=== PATIENT | female | born 1965 | race American Indian/Alaskan Native ===

== ENCOUNTER 2017-07-28 12:54 | Emergency (ER) | payer MEDICAID ==
--- NOTE | 2017-07-28 13:19 | C.PDOC ---
History Of Present Illness Patient is a 51 y/o female who presents to the ED by reference of the fire department for carbon monoxide poisoning. Patient lives at home with just her and installed a new stove 3 days ago; with the windows closed overnight , the CO meter read 105-107 ppm the next day. Patient admits to CHING and nausea, but denies vision changes. Patient is a tabacco smoker and admits to smoking 1 pack/day. refused ED visit. Time Seen by Provider: 07/28/17 13:12 Chief Complaint (Nursing): Shortness Of Breath History Per: Patient History/Exam Limitations: no limitations Onset/Duration Of Symptoms: Hrs Current Symptoms Are (Timing): Still Present Recent travel outside of the [place]: No Additional History Per: Patient Past Medical History Reviewed: Historical Data, Nursing Documentation, Vital Signs Vital Signs: Last Vital Signs Temp 98 F 07/28/17 14:57 Pulse 44 L 07/28/17 14:57 Resp 12 07/28/17 14:57 BP 155/83 H 07/28/17 14:57 Pulse Ox 98 07/28/17 14:59 - Medical History PMH: Bronchitis, COPD, Diabetes, HTN, Schizophrenia Other Surgeries: impacted fecal removal 2014. - [facility] Procedures IMPACTED FECES REMOVAL (05/28/15) Family History: States: Unknown Family Hx - Social History Hx Tobacco Use: Yes (1 pack per day. ) Hx Alcohol Use: No Hx Substance Use: Yes (stopped 2008) - Immunization History Hx Tetanus Toxoid Vaccination: No Hx Influenza Vaccination: No Hx Pneumococcal Vaccination: No Review Of Systems Constitutional: Negative for: Fever, Chills Cardiovascular: Negative for: Chest Pain Respiratory: Negative for: Shortness of Breath Gastrointestinal: Positive for: Nausea. Negative for: Vomiting, Diarrhea Neurological: Positive for: Headache Physical Exam - Physical Exam Appears: Well Skin: Normal Color, Warm, Dry Head: Atraumatic, Normacephalic Eye(s): bilateral: Abnormal Pupil (miosis. ), Other (dark red retinal veins) Oral Mucosa: Moist Chest: Symmetrical Cardiovascular: Rhythm Regular, Other (bradycardic. ) Respiratory: Normal Breath Sounds, No Rales, No Rhonchi, No Wheezing Gastrointestinal/Abdominal: Soft, No Tenderness Neurological/Psych: Oriented x3, Normal Speech, Normal Cognition Gait: Steady ED Course And Treatment - Laboratory Results Lab Interpretation: Normal (VBG nl, CO by finger pulse ROJAS 1.5 percent, confirmed on local staff.) ECG: Interpreted By Me, Viewed By Me ECG Rhythm: Sinus Rhythm ECG Interpretation: Normal Rate From EC O2 Sat by Pulse Oximetry: 98 (Room air) Pulse Ox Interpretation: Normal - Radiology CXR: Interpreted by Me CXR Interpretation: Yes: No Acute Disease, Other (hyperinflated) Reevaluation Time: 14:56 Reassessment Condition: Improved (remains baseline) Medical Decision Making Medical Decision Making: Plan: Blood gas, blood work, UA, O2 therapy, and EKG ordered. Though IV access achieved, pt asked for removal and deferred blood testing with informed consent. normal eval (without blood tests) and LOW susp of CO poisoning and normal VBG/ CO Ox potential threat @ home has been mitigated by Fire Dept. No other risk persons home. Disposition Doctor Will See Patient In The: Office Counseled Patient/Family Regarding: Studies Performed, Diagnosis - Disposition Referrals: [facility] [Outside] [facility] [Outside] Israel Shaffer MD [Staff Provider] - Disposition: HOME/ ROUTINE Disposition Time: 14:59 Condition: GOOD Additional Instructions: LOW suspicion of Carbon Monoxide Poisoning: your CO level was 1.5 (very low) otherwise normal evaluation Follow Fire Dept guidelines to have your new stove evaluated for safe operation. Instructions: Carbon Monoxide Poisoning (ED) Forms: [facility] (Occitan) - Clinical Impression Clinical Impression: Carbon monoxide exposure - Scribe Statement The provider has reviewed the documentation as recorded by the Scribe Zenaida Sanders All medical record entries made by the Scribe were at my direction and personally dictated by me. I have reviewed the chart and agree that the record accurately reflects my personal performance of the history, physical exam, medical decision making, and the department course for this patient. I have also personally directed, reviewed, and agree with the discharge instructions and disposition.
[2017-07-28 14:11] LABS: DRAW SITE RB
--- NOTE | 2017-07-28 14:41 | RAD ---
PROCEDURE: CHEST RADIOGRAPH, 1 VIEW HISTORY: carbon monoxide poisoning COMPARISON: Comparison chest 11/16/2015. FINDINGS: LUNGS: Suspect minor bibasilar atelectasis PLEURA: No pneumothorax or pleural fluid seen. CARDIOVASCULAR: Normal. OSSEOUS STRUCTURES: No significant abnormalities. VISUALIZED UPPER ABDOMEN: Normal. OTHER FINDINGS: None. IMPRESSION: Suspect minor bibasilar atelectasis.
[2017-07-28 14:58] VITALS: BP 155/83; PULSE 44; RESP 12; TEMP 98
[2017-07-28 14:59] VITALS: O2SAT 98
--- NOTE | 2017-07-29 15:56 | CARD ---
APPROVED REPORT EKG Measurement Heart [id number] <Conclusion> Marked sinus bradycardia Nonspecific T wave abnormality Abnormal ECG
== END 2017-07-28 15:12 | disposition home or self-care (01) ==
LOC: C.ER 12:54
DX: Z77.098 Contact with and (suspected) exposure to other hazardous, chiefly nonmedicinal, chemicals (principal)

== ENCOUNTER 2018-08-20 22:39 | Emergency (ER) | payer MEDICAID ==
[2018-08-20 22:44] VITALS: BP 130/87; PULSE 66; RESP 19; TEMP 98.5; O2SAT 96
--- NOTE | 2018-08-20 23:19 | C.PDOC ---
History Of Present Illness Patient complains of left upper back pain and headache after accidental slip and fall in grocery store earlier today. She states she fell backwards and hit her head. She states she went home and rested but the pain started few hours later. She denies LOC, dizziness, vision changes, confusion. - HPI Time Seen by Provider: 08/20/18 22:46 Chief Complaint (Nursing): Trauma History Per: Patient History/Exam Limitations: no limitations Onset/Duration Of Symptoms: Hrs Injury Occurred (Timing): Just Before Arrival Location Of Injury: Left: Back (upper), Posterior: Head Recent travel outside of the [facility]: No Additional History Per: Patient - Fall Fall:Prior To Injury: Slipped Past Medical History Reviewed: Historical Data, Nursing Documentation, Vital Signs Vital Signs: Last Vital Signs Temp 98.5 F 08/20/18 22:40 Pulse 66 08/20/18 22:40 Resp 19 08/20/18 22:40 BP 130/87 08/20/18 22:40 Pulse Ox 96 08/20/18 22:40 - Medical History PMH: Bronchitis, COPD, Diabetes, HTN, Schizophrenia Surgical History: No Surg Hx - [facility] Procedures IMPACTED FECES REMOVAL (05/28/15) Family History: States: Unknown Family Hx - Social History Hx Tobacco Use: Yes (1 pack per day. ) Hx Alcohol Use: No Hx Substance Use: Yes - Immunization History Hx Tetanus Toxoid Vaccination: No Hx Influenza Vaccination: Yes Hx Pneumococcal Vaccination: No Review Of Systems Constitutional: Negative for: Fever, Chills Eyes: Negative for: Vision Change Cardiovascular: Negative for: Chest Pain Respiratory: Negative for: Shortness of Breath Gastrointestinal: Negative for: Nausea, Vomiting Musculoskeletal: Positive for: Back Pain Neurological: Positive for: Headache. Negative for: Weakness, Numbness, Dizziness Physical Exam - Physical Exam Appears: Non-toxic, No Acute Distress Skin: Normal Color, Warm, Dry Head: Atraumatic, Normacephalic, Other (no hematoma, patient with haydee and weave) Eye(s): bilateral: Normal Inspection, PERRL, EOMI Ear(s): Bilateral: Normal Neck: Normal ROM, No Midline Cervical Tenderness, Supple Chest: Symmetrical Cardiovascular: Rhythm Regular Respiratory: Normal Breath Sounds, No Rales, No Rhonchi, No Wheezing Gastrointestinal/Abdominal: Soft, No Tenderness, No Guarding, No Rebound Back: No Vertebral Tenderness (LS spine), No Decreased ROM, No Muscle Spasm, Other (left upper back and scapular area with tenderness on palpation and mild swelling. No ecchymosis) Extremity: Normal ROM, No Tenderness, No Swelling Neurological/Psych: Oriented x3, Normal Speech, Normal Cognition, Normal Motor, Normal Sensation Gait: Steady ED Course And Treatment O2 Sat by Pulse Oximetry: 96 (ON RA) Pulse Ox Interpretation: Normal - CT Scan/US CT head Other Rad Studies (CT/US): Read By Radiologist, Radiology Report Reviewed CT/US Interpretation: NONCONTRAST CT BRAIN. indication: Occipital pain slip and fall and hit head. Technique: Multislice helical acquisition of the brain without contrast. Findings:The ventricles are of normal size position and configuration. There is no intracranial hemorrhage, subdural collections, midline shift, discernible mass effect, or vascular territorial edema. The calvarium is intact. Impression: Normal study. . Electronically signed on Aug 21, 2018 12:02:25 AM EDT by: Maximino Argueta M.D., Certified by [facility]. Medical Decision Making Medical Decision Making: Impression: slip and fall with headache and back pain Based on history and exam do not suspect any skull fracture or ICH, as patient has normal neuro exam and no LOC thus CT not clinically indicated. The patient is concerned because she has headache and insists on CT scan. I explain the risk of radiation, but she still insists. CT will be ordered at patient request. Plan: * Dorsal spine xray * Head CT * Tylenol Progress Imaging viewed and CT read by radiologist with no acute findings. Patient re-evaluated was sleeping comfortably. She is alert and oriented no dizziness or other neuro complaints. Advise to take analgesics and follow up outpatient Disposition Counseled Patient/Family Regarding: Diagnosis, Need For Followup - Disposition Disposition: HOME/ ROUTINE Disposition Time: 00:30 Condition: STABLE Additional Instructions: Take Tylenol or Motrin for any pain. Can apply ice to area Advise return to the ER if any alteration in behavior or mental status, severe headache, nausea, persistent vomiting, or loss of consciousness occurs. Instructions: Closed Head Injury (DC) Forms: [facility] (Georgian) - POA Present On Arrival: Falls Or Trauma - Clinical Impression Clinical Impression: Closed head injury, Upper back pain, Accidental fall - PA / CHASSIS INSPECTOR / Resident Statement /DO has reviewed & agrees with the documentation as recorded. - Scribe Statement The provider has reviewed the documentation as recorded by the Scribe Lazaro Avelar All medical record entries made by the Manjulaibremy were at my direction and personally dictated by me. I have reviewed the chart and agree that the record accurately reflects my personal performance of the history, physical exam, medical decision making, and the department course for this patient. I have also personally directed, reviewed, and agree with the discharge instructions and disposition.
--- NOTE | 2018-08-21 07:08 | CT ---
Date of service: 08/20/2018 PROCEDURE: CT HEAD WITHOUT CONTRAST. HISTORY: Fall. Head injury. COMPARISON: None available. TECHNIQUE: Axial computed tomography images were obtained through the head/brain without intravenous contrast. Radiation dose: Total exam DLP = 1157 mGy-cm. This CT exam was performed using one or more of the following dose reduction techniques: Automated exposure control, adjustment of the mA and/or kV according to patient size, and/or use of iterative reconstruction technique. FINDINGS: HEMORRHAGE: No intracranial hemorrhage. BRAIN: No mass effect or edema. Scattered focal lucencies in the subcortical and periventricular white matter suggestive for chronic microvascular ischemic change.. Mild cerebellar atrophy. Punctate hypodensities in the bilateral basal ganglia may represent small lacunar infarcts versus prominent perivascular spaces. VENTRICLES: Unremarkable. No hydrocephalus. CALVARIUM: Unremarkable. PARANASAL SINUSES: Unremarkable as visualized. No significant inflammatory changes. MASTOID AIR CELLS: Unremarkable as visualized. No inflammatory changes. OTHER FINDINGS: Intracranial arterial calcifications. IMPRESSION: No acute intracranial abnormality. If symptoms persists, consider correlation with MRI. These findings were preliminarily reported at 12:02 a.m. on 08/21/[address] Maximino Argueta from [facility].
--- NOTE | 2018-08-21 09:16 | RAD ---
Date of service: 08/20/2018 HISTORY: pain s.p fall COMPARISON: No prior. FINDINGS: BONES: Slight rightward convexity of the midthoracic spine. Generalized osteopenia-lateral view limited for this and for technical reasons. Per frontal view no gross compression fracture greater than 30 percent appreciated. Probable Schmorl's node indentation inferior T9 vertebral body. On lateral view an approximately 1 cm rounded hyperdensity projects over the posterior T12-L1 level (estimated). Appearance is not appreciated on the lateral chest x-ray from 02/20/2014. Etiology and clinical significance unknown-not appreciated on frontal view. Appears unrelated to the thoraco lumbar vertebrae DISC SPACES: Grossly maintained SOFT TISSUES: Normal. OTHER FINDINGS: None. IMPRESSION: Limited lateral view. Per frontal view no gross compression fracture appreciated. Generalized osteopenia accentuated on lateral view likely due to technique. The inferior hyperdensity referenced above on the lateral view over the inferior thoraco lumbar spine is unrelated to the thoracolumbar spine on frontal view. Its origin and clinical significance (if any) is unknown. It is of unlikely clinical significance. .
== END 2018-08-21 00:35 | disposition home or self-care (01) ==
LOC: C.ER 22:39
DX: S09.90XA Unspecified injury of head, initial encounter (principal); W01.0XXA Fall on same level from slipping, tripping and stumbling without subsequent striking against object, initial encounter; Y92.512 Supermarket, store or market as the place of occurrence of the external cause; M54.6 Pain in thoracic spine

== ENCOUNTER 2019-03-04 11:10 | Outpatient (CLI) | payer MEDICAID | END 2019-03-04 11:11 | disposition home or self-care (01) | LOC: C.RADIC 11:10 | DX: R76.11 Nonspecific reaction to tuberculin skin test without active tuberculosis (principal) ==